=== PATIENT | female | born 1970 | race Caucasian/White ===

== ENCOUNTER 2017-08-24 20:39 | Emergency (ER) | payer OTHER ==
[~2017-08-24] VITALS: Ht 165.1 cm; Wt 88.9 kg
[~2017-08-24 20:39] MED LIST: AEROECLIPSE II1 EACH MC; ALBUTEROL2.5 MG/0.1 INH; ALBUTEROL2.5 MG/31 INH; ASPIR 8181 MG PO; AZITHROMYCIN 2250 MG PO; CARAFATE 1 GM TA1 GM PO; CEFDINIR300 MG PO; CHOLESTEROL MEDS; DUONEB 2.5-0.5 M3 ML INH; FLEXERIL PO; LEVAQUIN 500 M500 M2 PO; MEDROLDOSEPACK PO; MONTELUKAST SOD10 MG PO; NORCO 5-325 TA1 EACH PO; PREDNISONE 10 M10 MG PO; PREDNISONE 20 M20 M1 PO; PREDNISONE 20 M20 MG PO; PREDNISONE50 MG PO; PRILOSEC 20 MG20 MG PO; PROAIR HFA8.5 GM; PROAIR HFA8.5 GM INH; PROMETH-CODEIN 65 ML PO; PROMETHAZINE-C120 ML PO; PULMICORT0.5 MG/22 INH; QVAR8.7 G1 IH; SEREVENT DISKU50 MCG IH; SINGULAIR 10 MG10 M1 PO; SPIRIVA INH; SYMBICORT160 MCG/4. INH; VENTOLIN HFA 1818 GM INH; ZPAK PO; ZYRTEC10 M5 PO
[2017-08-24] MEDS ORDERED: PROAIR HFA8.5 GM (20:43)
[2017-08-24 21:34] LABS: INFLUENZA A ANTIGEN None Detected (None Detect); INFLUENZA B ANTIGEN None Detected (None Detect)
[2017-08-24] MEDS ORDERED: TESSALON PERLE100 MG PO (22:04)
[2017-08-24] MEDS ORDERED: MEDROL DOSPAK21 TA1 PO (22:04)
[2017-08-24] MEDS ORDERED: HYDROCODON-ACE1 EAC7 PO (22:04)
[2017-08-24] MEDS ORDERED: AZITHROMYCIN 2250 MG PO (22:04)
[2017-08-24 22:16] VITALS: BP 124/73
== END 2017-08-24 22:16 | disposition home or self-care (01) ==
LOC: M.ERS 20:39
PROVIDERS: Emergency Medicine
DX: J40 Bronchitis, not specified as acute or chronic (principal); F17.210 Nicotine dependence, cigarettes, uncomplicated; F10.99 Alcohol use, unspecified with unspecified alcohol-induced disorder; I25.2 Old myocardial infarction; Z88.0 Allergy status to penicillin

== ENCOUNTER 2021-02-10 17:24 | Emergency (ER) | payer OTHER ==
[~2021-02-10] VITALS: Ht 162.6 cm; Wt 79.4 kg
[~2021-02-10 17:24] MED LIST changes: +HYDROCODON-ACE1 EAC7 PO; +MEDROL DOSPAK21 TA1 PO; +TESSALON PERLE100 MG PO
[2021-02-10] MEDS ORDERED: SINGULAIR 10 MG10 M1 PO (17:36)
[2021-02-10] MEDS ORDERED: CETIRIZINE HCL5 MG PO (17:36)
[2021-02-10 18:07] LABS: HEMATOCRIT 42.4 % (37.0-47.0); HEMOGLOBIN 14.9 gm/dL (12.0-15.0); MCH 33.1 pg (26.0-34.0); MCHC 35.1 g/dL (28.0-37.0); MCV 94.3 fL (80.0-100.0); MPV 8.7 fl. (7.2-11.1); NUCLEATED RBCS 0 /100WBC; PLATELET COUNT* 227 thou/uL (150-400); RBC 4.49 mil/uL (4.20-5.00); RDW-CV 13.2 % (10.5-14.5); WBC 9.5 thou/uL (4.0-11.0)
[2021-02-10 18:21] LABS: CREATININE 0.7 mg/dL (0.6-1.3); POTASSIUM 3.7 mmol/L (3.5-5.1)
[2021-02-10] MEDS ORDERED: PREDNISONE 20 M20 M1 PO (18:21)
[2021-02-10] MEDS ORDERED: ZPAK PO (18:21)
[2021-02-10 18:32] LABS: ALBUMIN 3.8 g/dL (3.4-5.0); TOTAL BILIRUBIN 0.6 mg/dL (<0.1-1.0); TOTAL PROTEIN 7.1 g/dL (6.4-8.2)
[2021-02-10 18:59] LABS: ABSOLUTE EOSINOPHILS 0.8 thou/uL (0.0-0.7); ABSOLUTE LYMPHOCYTES 3.2 thou/uL (0.8-5.3); ABSOLUTE MONOCYTES 0.5 thou/uL (0.0-1.2); MACROCYTES 1+; PLATELET ESTIMATE ADEQUATE
[2021-02-10 19:01] VITALS: BP 154/72
--- NOTE | 2021-02-11 13:51 | EKG ---
[place] [address] ELECTROCARDIOGRAM REPORT Name: BRUCE RIVERA Room: [facility]#: [id number] Admission: 02/10/21 Attend Phys: Discharge: 02/10/21 Date of : 74 Date of Service: 02/10/21 1759 Report #: [id number] THIS REPORT FOR: //name// [facility] ED Test Date: 2021-02-10 Test Time: 17:59:48 Pat Name: BRUCE RIVERA Department: Room: Gender: [employer]: : 1970 Requested By: Taz Montiel Order Number: [id number] MD: Naresh Saez Measurements Intervals [place] Rate: 65 P: 70 ND: 132 QRS: 69 QRSD: 120 T: 64 QT: 441 QTc: 459 Interpretive Statements Sinus rhythm Nonspecific intraventricular conduction delay Compared to ECG 04/03/2017 15:06:42 Intraventricular conduction delay now present Electronically Signed On 02-11-2021 13:51:23 CDT by Naresh Saez [email or web address] <ELECTRONICALLY SIGNED> By: Naresh Saez MD, [facility] 02/11/21 1351 1759 1759 Naresh Saez MD, [facility] /EPI
== END 2021-02-10 19:01 | disposition home or self-care (01) ==
LOC: M.ERS 17:24
PROVIDERS: Family Medicine
DX: J45.909 Unspecified asthma, uncomplicated (principal); R42 Dizziness and giddiness; F17.210 Nicotine dependence, cigarettes, uncomplicated; Z88.0 Allergy status to penicillin; Z87.01 Personal history of pneumonia (recurrent)

== ENCOUNTER 2021-04-13 11:18 | Emergency (ER) | payer OTHER ==
[~2021-04-13] VITALS: Ht 162.6 cm; Wt 81.7 kg
[~2021-04-13 11:18] MED LIST changes: +CETIRIZINE HCL5 MG PO
[2021-04-13] MEDS ORDERED: FLOVENT DISKUS50 MCG (11:29)
[2021-04-13] MEDS ORDERED: ALBUTEROL2.5 MG/3 M NEB (11:42)
[2021-04-13] MEDS ORDERED: PREDNISONE 20 M20 M1 PO (11:42)
[2021-04-13 12:11] VITALS: BP 129/77
[2021-04-13] MEDS ORDERED: IPRAT-ALBUT 0.5-3 ML INH (18:27)
[2021-04-13] MEDS ORDERED: VENTOLIN HFA 1818 GM INH (18:27)
== END 2021-04-13 12:12 | disposition home or self-care (01) ==
LOC: M.ERS 11:18
DX: J45.901 Unspecified asthma with (acute) exacerbation (principal); I25.2 Old myocardial infarction; F17.210 Nicotine dependence, cigarettes, uncomplicated; Z79.899 Other long term (current) drug therapy; Z88.0 Allergy status to penicillin